=== PATIENT | male | born 1970 | race African-American/Black ===

== ENCOUNTER 2017-06-02 16:45 | Inpatient (IN) | payer BC, OTHER ==
[~2017-06-02] VITALS: Ht 167.6 cm; Wt 175.5 kg
[~2017-06-02 16:45] MED LIST: ALBU8.5H5 IH; ASPI81TA3 PO; BENA40TA41 PO; CEPH-443 PO; FURO-109 PO; HYDR-3498 PO; METO25TA4 PO; NIFE90TA21 PO; SULF1TAB31 PO
[2017-06-02 17:13] VITALS: Ht 167.6 cm; Wt 175.5 kg
[2017-06-02] MEDS ORDERED: ONDANSETRON 4 MG INJ IV STA (22:46)
[2017-06-02] MEDS ORDERED: morphine 4 MG/ML VIAL IV STA (22:46)
[2017-06-02] MEDS ORDERED: SOD CHLORIDE 0.9% 500 ML IV STA (22:46)
[2017-06-02 23:48] LABS: BASOPHILS % 0.3 % (0.0-2.0); EOSINOPHILS % 0.4 % (0.0-7.0); HEMATOCRIT 45.7 % (42.0-52.0); HEMOGLOBIN 13.8 g/dl (14.0-18.0); LYMPHOCYTES # 2.4 10^3/ul (0.8-2.9); LYMPHOCYTES % 22.9 % (15.0-51.0); MEAN CORPUSCULAR HEMOGLOBIN 24.2 pg (29.0-33.0); MEAN CORPUSCULAR HGB CONC 30.2 g/dl (32.0-37.0); MEAN PLATELET VOLUME 10.3 fl (7.4-10.4); MONOCYTES % 9.6 % (0.0-11.0); PLATELET COUNT 388 10^3/UL (140-415); RED BLOOD COUNT 5.71 10^6/ul (4.70-6.10); RED CELL DISTRIBUTION WIDTH 15.1 % (11.5-14.5); WHITE BLOOD COUNT 10.2 10^3/ul (4.8-10.8)
--- NOTE | 2017-06-02 23:49 | RADRPT ---
PROCEDURE: Portable chest x-ray. CLINICAL INDICATION: 46 years of age, Male. abdominal pain. TECHNIQUE: Portable AP view of the chest. COMPARISON: January 02, 2015 FINDINGS: Cardiomediastinal contours are normal. Lungs are clear. Negative for pleural effusion or pneumothorax. No acute bony abnormality. IMPRESSION: Negative for evidence of acute chest process. RPTAT: HCTS Physician Landon Date Time Electronically viewed and signed by Blaze Price Physician on 06/02/2017 23:49 CS/
[2017-06-03] VITALS (7 sets, daily range): BP systolic 109–142; BP diastolic 55–89; PULSE 106; RESP 18–20; TEMP 99.1
[2017-06-03 00:09] LABS: ALBUMIN/GLOBULIN RATIO 0.9; BILIRUBIN,INDIRECT 0.1 mg/dl (0-1.1); BILIRUBIN,TOTAL 0.1 mg/dl (0.2-1.3); CALCIUM 9.6 mg/dl (8.4-10.2); CREATININE 4.4 mg/dl (0.61-1.24); POTASSIUM 4.8 mmol/L (3.5-5.1); TOTAL PROTEIN 8.4 g/dl (6.1-8.1)
[2017-06-03 00:21] LABS: TROPONIN-I 0.012 ng/ml (0.00-0.12)
--- NOTE | 2017-06-03 00:47 | RADRPT ---
PROCEDURE: CT ABDOMEN AND PELVIS WITHOUT CONTRAST: CLINICAL INDICATION: 46 years of age, male , abdominal pain. COMPARISON: None available. TECHNIQUE: CT of the abdomen and pelvis was performed without intravenous contrast. Oral contrast wa s not administered prior to the examination. Coronal and sagittal reformatted images were obtained from the axial source images. Images were revi ewed on a high-resolution PACS workstation. Dose information: Based on a 32 cm phantom, the estimated radiation dose (CTDIvol mGy) for each seri es in this exam is 23.8. The estimated cumulative dose (DLP mGy-cm) is 1626. One or more of the following dose reduction techniques were used: - Automated exposure control. - Adjustment of the mA and/or kV according to patient size. - Use of iterative reconstruction technique. FINDINGS: In the absence of intravenous contrast, the study constitutes a limited assessment of the solid orga ns, bowel and vessels. LUNG BASES: Normal noncontrast appearance. ABDOMEN/PELVIS: Liver: Normal noncontrast appearance. Gallbladder: Normal noncontrast appearance. Bile ducts: No intrahepatic or extrahepatic biliary duct dilatation. Spleen: Normal noncontrast appearance. Pancreas: Normal noncontrast appearance. Adrenal glands: Normal noncontrast appearance. Kidneys and ureters: Normal noncontrast appearance. Negative for urinary calculi or hydronephrosis. Aorta and IVC: Normal noncontrast appearance. Lymph nodes: Normal noncontrast appearance. Gastrointestinal tract: Scattered colonic diverticula without diverticulitis. Bowel loops are decomp ressed. Appendix: Collapsed tubular structure in the right lower quadrant likely represents a non-inflamed a ppendix (3/128). Bladder: Normal noncontrast appearance. Pelvic Organs: Prostate gland and seminal vesicles are unremarkable. Peritoneal cavity: There is a trace of free intraperitoneal fluid that collects in the pelvis and i n bilateral paracolic gutters. Negative for free intraperitoneal air. Abdominal wall: Normal noncontrast appearance. BONES: Musculoskeletal: Multilevel degenerative changes in spine. No suspicious bone lesions. IMPRESSION: Small volume free intraperitoneal fluid. Negative for free intraperitoneal air. Scattered colonic diverticulosis without diverticulitis. RPTAT: HCTS Claudiay Sadro, Physician Date Time Electronically viewed and signed by Blaze Price, Physician on 06/03/2017 00:47 CS/
[2017-06-03] MEDS ORDERED: GLIP5TAB13 PO (01:10)
[2017-06-03] MEDS ORDERED: LOSA25TA5 PO (01:10)
[2017-06-03] MEDS ORDERED: LATA2.5D2 BOTH EYES (01:10)
[2017-06-03] MEDS ORDERED: SITA100T8 PO (01:12)
[2017-06-03] MEDS ORDERED: PIOG15TA21 PO (01:12)
[2017-06-03] MEDS ORDERED: ONDANSETRON 4 MG INJ IV STA (01:44)
--- NOTE | 2017-06-03 01:46 | ERA ---
ER Documentation Chief Complaint Date/Time DATE: 06/03/17 TIME: 01:45 Chief Complaint ap, dizziness, left foot pain HPI Some 38-year-old male comes in with abdominal pain and dizziness that started yesterday. Abdominal pain is colicky in nature mild to moderate intensity no exacerbating or alleviating factors. Normal bowel and bladder habits. No fevers no chills. Pain colicky in nature ROS All systems reviewed and are negative except as per history of present illness. Medications Home Meds Active Scripts Sulfamethoxazole-Trimethoprim (Bactrim DS Tablet) 800-160 Mg Tab, 1 TAB PO BID for 10 Days, TAB Prov:MELLY CARRANZA MD 03/16/15 Furosemide* (Lasix*) 40 Mg Tablet, 40 MG PO DAILY for leg edema, #60 TAB Prov:LEBRON WING MD 01/03/15 Reported Medications Pioglitazone Hcl* (Pioglitazone Hcl*) 15 Mg Tablet, 15 MG PO DAILY, TAB 06/03/17 Sitagliptin* (Januvia*) 100 Mg Tablet, 100 MG PO DAILY, #30 TAB 06/03/17 Latanoprost (Latanoprost) 2.5 Ml Drops, 1 DROP BOTH EYES QHS, #1 BOTTLE 06/03/17 Glipizide* (Glipizide*) 5 Mg Tablet, 5 MG PO BID, TAB 06/03/17 Losartan Potassium* (Losartan Potassium*) 25 Mg Tablet, 25 MG PO DAILY, TAB 06/03/17 Benazepril Hcl* (Benazepril Hcl*) 40 Mg Tablet, 40 MG PO DAILY, TAB 03/16/15 Hydrocodone Bit-Acetaminophen* ([place]*) 5-325 Mg Tab, 1 TAB PO Q6 Y for PAIN, TAB 03/16/15 Metoprolol Tartrate* (Lopressor*) 25 Mg Tablet, 25 MG PO BID, TAB 03/16/15 Albuterol Sulfate* (Albuterol Sulfate* HFA) 8.5 Gm Hfa.aer.ad, 2 PUFF IH Q4H for SHORTNESS OF BREATH, EA 12/16/14 Aspirin* (Aspirin* Chew) 81 Mg Tab.chew, 81 MG PO DAILY, TAB.CHEW 12/16/14 Discontinued Reported Medications Nifedipine* (Nifedipine ER*) 90 Mg Tablet.sa, 90 MG PO DAILY, TAB.SA 12/16/14 Discontinued Scripts Cephalexin* (Keflex*) 500 Mg Capsule, 500 MG PO QID for 10 Days, CAP Prov:MELLY CARRANZA MD 03/16/15 Cephalexin* (Keflex*) 500 Mg Capsule, 500 MG PO QID for 10 Days, CAP Prov:MELLY CARRANZA MD 03/16/15 Allergies Allergies: Coded Allergies: diphenhydramine (Unverified Allergy, Unknown, 06/03/17) PMhx/Soc History of Surgery: No Anesthesia Reaction: No Hx Neurological Disorder: No Hx Respiratory Disorders: Yes (asthma, PNA ) Hx Cardiac Disorders: Yes (HTN, CHF) Hx Psychiatric Problems: No Hx Miscellaneous Medical Probl: Yes (obesity) Hx Alcohol Use: No Hx Substance Use: No Hx Tobacco Use: No Smoking Status: Never smoker Physical Exam Vitals Vital Signs Date Time Temp Pulse Resp B/P Pulse Ox O2 Delivery O2 Flow Rate FiO2 06/03/17 00:38 98.1 77 20 148/77 99 Room Air 06/02/17 17:13 98.1 89 18 90/58 99 Physical Exam Const: [] Head: Atraumatic Eyes: Normal Conjunctiva ENT: Normal External Ears, Nose and Mouth. Neck: Full range of motion..~ No meningismus. Resp: Clear to auscultation bilaterally Cardio: Regular rate and rhythm, no murmurs Abd: Soft, non tender, non distended. Normal bowel sounds Skin: No petechiae or rashes Back: No midline or flank tenderness Ext: No cyanosis, or edema Neur: Awake and alert Psych: Normal Mood and Affect Result Diagram: 06/02/17 2311 06/02/17 2311 Results 24 hrs Laboratory Tests Test 06/02/17 23:11 White Blood Count 10.210^3/ul Red Blood Count 5.7110^6/ul Hemoglobin 13.8g/dl Hematocrit 45.7% Mean Corpuscular Volume 80.0fl Mean Corpuscular Hemoglobin 24.2pg Mean Corpuscular Hemoglobin Concent 30.2g/dl Red Cell Distribution Width 15.1% Platelet Count 89454^3/UL Mean Platelet Volume 10.3fl Neutrophils % 66.0% Lymphocytes % 22.9% Monocytes % 9.6% Eosinophils % 0.4% Basophils % 0.3% Nucleated Red Blood Cells % 0.0/100WBC Neutrophils # (Manual) 6.810^3/ul Lymphocytes # 2.410^3/ul Monocytes # 1.010^3/ul Eosinophils # 0.010^3/ul Basophils # 0.010^3/ul Nucleated Red Blood Cells # 0.010^3/ul Sodium Level 136mmol/L Potassium Level 4.8mmol/L Chloride Level 96mmol/L Carbon Dioxide Level 28mmol/L Anion Gap 17 Blood Urea Nitrogen 39mg/dl Creatinine 4.40mg/dl Glucose Level 124mg/dl Calcium Level 9.6mg/dl Total Bilirubin 0.1mg/dl Direct Bilirubin 0.00mg/dl Indirect Bilirubin 0.1mg/dl Aspartate Amino Transf (AST/SGOT) 17IU/L Alanine Aminotransferase (ALT/SGPT) 20IU/L Alkaline Phosphatase 90IU/L Troponin I 0.012ng/ml Total Protein 8.4g/dl Albumin 4.0g/dl Globulin 4.40g/dl Albumin/Globulin Ratio 0.90 Lipase 79U/L Current Medications Medications (Trade) Dose Ordered Sig/Aden Route PRN Reason Start Time Stop Time Status Last Admin Dose Admin Sodium Chloride (NS) 500 ml @ 500 mls/hr Q1H STAT IV 06/02/17 22:46 06/02/17 23:45 DC 06/02/17 23:19 Morphine Sulfate (morphine) 4 mg ONCE STAT IV 06/02/17 22:46 06/02/17 22:47 DC 06/02/17 23:17 Ondansetron HCl (Zofran Inj) 4 mg ONCE STAT IV 06/02/17 22:46 06/02/17 22:47 DC 06/02/17 23:17 Procedures/MDM Medical decision-makin-year-old male with abdominal pain. He does have evidence of renal failure along with free fluid in the abdomen pelvis with no evidence of perforation. Given these findings and is continued on and off pain , patient will be admitted for further evaluation and management to Dr. Cornell Sheppard Diagnosis: Primary Impression: Abdominal pain Qualified Code: R10.84 - Generalized abdominal pain Condition: Serious RASTA ALASHadley Jun 03, 2017 01:46
[2017-06-03] MEDS ORDERED: DEXTROSE 50% 50 ML SYRINGE IV PRN ×2 (04:45)
[2017-06-03] MEDS ORDERED: GLUCAGON 1 MG INJ IM PRN (04:45)
[2017-06-03] MEDS ORDERED: GLUCOSE GEL 15 GRAM TUBE BUCCAL PRN (04:45)
[2017-06-03] MEDS ORDERED: GLUCOSE GEL 15 GRAM TUBE PO PRN ×2 (04:45)
[2017-06-03] MEDS ORDERED: ACETAMINOPHEN 325 MG TAB PO PRN (05:00)
[2017-06-03] MEDS ORDERED: ONDANSETRON 4 MG INJ IV PRN (05:00)
[2017-06-03] MEDS ORDERED: ALBUTEROL 18 GM INHALER INH SCH (05:00)
[2017-06-03] MEDS ORDERED: morphine 2 MG INJ IV PRN (05:00)
[2017-06-03] MEDS: SOD CHLORIDE 0.9% 1,000 ML IV SCH ×2 (05:16→22:53)
[2017-06-03 05:53] LABS: BASOPHILS % 0.4 % (0.0-2.0); EOSINOPHILS % 0.4 % (0.0-7.0); HEMATOCRIT 40.3 % (42.0-52.0); HEMOGLOBIN 12.2 g/dl (14.0-18.0); LYMPHOCYTES # 1.9 10^3/ul (0.8-2.9); LYMPHOCYTES % 20.8 % (15.0-51.0); MEAN CORPUSCULAR HEMOGLOBIN 24.5 pg (29.0-33.0); MEAN CORPUSCULAR HGB CONC 30.3 g/dl (32.0-37.0); MEAN CORPUSCULAR VOLUME 80.9 fl (82.0-101.0); MEAN PLATELET VOLUME 10.5 fl (7.4-10.4); MONOCYTES % 11.1 % (0.0-11.0); NEUTROPHILS % 66.5 % (39.0-77.0); PLATELET COUNT 330 10^3/UL (140-415); RED BLOOD COUNT 4.98 10^6/ul (4.70-6.10); RED CELL DISTRIBUTION WIDTH 15.1 % (11.5-14.5)
[2017-06-03] MEDS ORDERED: ALBUTEROL 18 GM INHALER INH PRN (06:00)
[2017-06-03 06:28] LABS: CALCIUM 8.7 mg/dl (8.4-10.2); CREATININE 4.8 mg/dl (0.61-1.24); POTASSIUM 4.6 mmol/L (3.5-5.1)
[2017-06-03] MEDS ORDERED: glipiZIDE 5 MG TAB PO SCH (07:20)
[2017-06-03] MEDS: INSULIN ASPART [NOVOLOG] 3 ML PEN SC SCH ×4 (07:50→20:40)
[2017-06-03] MEDS: ASPIRIN 81 MG TAB PO SCH (08:48)
[2017-06-03] MEDS: PIOGLITAZONE 15 MG TAB PO SCH (08:48)
[2017-06-03] MEDS ORDERED: FAMOTIDINE 20 MG INJ IV SCH (09:00)
--- NOTE | 2017-06-03 09:09 | RADRPT ---
PROCEDURE: US Renal CLINICAL INDICATION: Elevated BUN and creatinine. TECHNIQUE: Multiple sonographic images of the kidneys and bladder were obtained. Evaluation of th e kidneys and bladder was performed as well with bernardo scale and color and Doppler evaluation using a curved array transducer. The images were reviewed on a high-resolution PACS workstation. COMPARISON: 12/19/2014 FINDINGS: The right kidney measures 10.2 x 4.2 x 5.0 cm. The left kidney measures 10.7 x 4.3 x 4.6 cm. There is normal echogenicity within the parenchyma of the kidneys bilaterally. There is no mass, calculus, or obstructive uropathy. No perinephric fluid collection is seen. Evaluation of the urinary bladder is unremarkable. IMPRESSION: 1. Unremarkable renal ultrasound. RPTAT: AACC Physician Edilberto Date Time Electronically viewed and signed by Physician Edilberto on 06/03/2017 09:09 /
[2017-06-03 09:51] LABS: ADD UMIC YES; UR AMORPHOUS CRYSTAL FEW /HPF (NONE SEEN); UR ASCORBIC ACID NEGATIVE (NEGATIVE); UR BACTERIA FEW /HPF (NONE SEEN); UR BILIRUBIN (Dip) NEGATIVE (NEGATIVE); UR BLOOD (Dip) 2+ mg/dL (NEGATIVE); UR CLARITY CLOUDY (CLEAR); UR COLOR AMBER (YELLOW); UR GLUCOSE (Dip) NEGATIVE (NEGATIVE); UR KETONES (Dip) NEGATIVE (NEGATIVE); UR LEUKOCYTE ESTERASE (Dip) TRACE Leu/ul (NEGATIVE); UR MUCUS FEW /HPF (NONE SEEN); UR NITRITE (Dip) NEGATIVE (NEGATIVE); UR RBC 42 /HPF (0-5); UR SPECIFIC GRAVITY (Dip) 1.025 (1.003-1.030); UR TOTAL PROTEIN (Dip) 2+ mg/dl (NEGATIVE); UR UROBILINOGEN (Dip) 1+ mg/dL (NEGATIVE)
[2017-06-03] MEDS: LATANOPROST 0.005% 2.5 ML OPH BOTH EYES SCH (20:40)
--- NOTE | 2017-06-03 22:25 | QN ---
Documentation Comment [id number] ERIC PAZ MD Jun 03, 2017 22:25
[2017-06-04] MEDS ORDERED: ACCU-CHEK XX SCH (02:00)
[2017-06-04] MEDS: ACCU-CHEK XX SCH (02:00)
[2017-06-04 02:20] VITALS: BP 128/72; RESP 20
[2017-06-04 05:49] LABS: BASOPHILS % 0.5 % (0.0-2.0); EOSINOPHILS # 0.1 10^3/ul (0.0-0.5); EOSINOPHILS % 1.8 % (0.0-7.0); HEMATOCRIT 36.7 % (42.0-52.0); HEMOGLOBIN 11.3 g/dl (14.0-18.0); LYMPHOCYTES # 1.8 10^3/ul (0.8-2.9); LYMPHOCYTES % 27.7 % (15.0-51.0); MEAN CORPUSCULAR HEMOGLOBIN 24.7 pg (29.0-33.0); MEAN CORPUSCULAR HGB CONC 30.8 g/dl (32.0-37.0); MEAN CORPUSCULAR VOLUME 80.1 fl (82.0-101.0); MEAN PLATELET VOLUME 10.8 fl (7.4-10.4); MONOCYTE # 0.6 10^3/ul (0.3-0.9); MONOCYTES % 9.1 % (0.0-11.0); NEUTROPHILS % 60.1 % (39.0-77.0); PLATELET COUNT 270 10^3/UL (140-415); RED BLOOD COUNT 4.58 10^6/ul (4.70-6.10); RED CELL DISTRIBUTION WIDTH 14.8 % (11.5-14.5); WHITE BLOOD COUNT 6.6 10^3/ul (4.8-10.8)
[2017-06-04 06:14] LABS: ANION GAP 15 (8-16); ASPARTATE AMINO TRANSFERASE 21 IU/L (15-46); BLOOD UREA NITROGEN 46 mg/dl (7-20); CALCIUM 8.5 mg/dl (8.4-10.2); CARBON DIOXIDE 24 mmol/L (21-31); CHLORIDE 99 mmol/L (97-110); GLUCOSE 87 mg/dl (70-220); PHOSPHORUS 5.6 mg/dl (2.5-4.9); POTASSIUM 4.5 mmol/L (3.5-5.1); SODIUM 133 mmol/L (135-144)
[2017-06-04 06:15] LABS: ALANINE AMINOTRANSFERASE 22 IU/L (13-69); ALBUMIN 3.5 g/dl (3.3-4.9); ALBUMIN/GLOBULIN RATIO 0.92; ALKALINE PHOSPHATASE 75 IU/L (42-121); BILIRUBIN,INDIRECT 0.1 mg/dl (0-1.1); BILIRUBIN,TOTAL 0.1 mg/dl (0.2-1.3); TOTAL PROTEIN 7.3 g/dl (6.1-8.1)
--- NOTE | 2017-06-04 06:24 | HP ---
DATE OF ADMISSION: 06/03/2017 CHIEF COMPLAINT/HISTORY OF PRESENT ILLNESS: Mic Fernandez is a young male who has a history of CKD, history of hypoxic respiratory distress, history of obesity, hypertension, dyslipidemia, asthma, history of borderline obese, worse in the past, history of CKD, history of hypertension. Patient in the ER was seen by Dr. Sukh Pagan and was complaining of abdominal pain, dizziness that started yesterday. Pain was colicky in nature and mild to moderate in severity and amount. Patient has no diarrhea, no fever, no chills. He also has complained of leg pain. Patient's blood pressure was 148/77 in the ER. Hemoglobin 10.2, hematocrit 41.7, platelet count of 388, with , and patient is being admitted for further management. PAST MEDICAL HISTORY: Positive for CKD, hypertension, diabetes mellitus, obesity. Denied sores and cellulitis. The patient has a history of diabetic retinopathy. ALLERGIES: DIPHENHYDRAMINE. SOCIAL HISTORY: Negative. FAMILY HISTORY: Hypertension and diabetes mellitus. MEDICATIONS: At home, patient is on: 1. Tylenol. 2. Albuterol. 3. Aspirin. 4. Benazepril. 5. Lasix. 6. Glipizide. 7. Eye drops. 8. Losartan. 9. Metoprolol. 10. Pioglitazone. 11. Januvia. 12. Trimethoprim/sulfamethoxazole. REVIEW OF SYSTEMS: HEENT: Unremarkable. RESPIRATORY: Unchanged. CARDIOVASCULAR: Unremarkable. ABDOMEN: No diarrhea. Abdominal pain is better. EXTREMITIES: Lower extremity pain. Pain is unremarkable. PHYSICAL EXAMINATION: GENERAL: This is an obese male, HEENT: Head is atraumatic, normocephalic. Pupils are equal, reactive to light. No pallor or conjunctivitis. NECK: Supple. RESPIRATORY: Clear. CARDIOVASCULAR: S1, S2 normal. ABDOMEN: Obese. Bowel sounds positive. . EXTREMITIES: No cyanosis, clubbing or edema. NEUROLOGIC: Patient is awake, alert, moving both upper and lower extremities. LABORATORY DATA: WBC 10.2, hematocrit 41.7, platelet count was 388. Patient has BUN 39, creatinine 4.4, potassium 4.8. Urinalysis: Leuk esterase trace, WBCs 14. RADIOLOGY: Patient had ultrasound of kidneys done, right kidney 10.2, left 10.7. Abdominopelvic CT scan shows patient had small volume negative for intraperitoneal air, scattered chronic diverticulosis without diverticulitis. Chest x-ray negative. IMPRESSION: 1. Acute kidney injury. 2. Dehydration. 3. Rule out drug-induced acute kidney injury. Rule out interstitial nephritis, underlying diabetic nephropathy, hypertensive nephrosclerosis. 4. Patient has obesity, dyslipidemia. PLAN: Obtain urine sodium and eosinophils. IV fluid. Hold diuretic and Bactrim. Sliding scale orders were done. Dictated By: Nixon Sarabia MD /miko/siddharth /Document#: [id number] MTDD
[2017-06-04 07:46] VITALS: BP 113/60; RESP 18
[2017-06-04] MEDS: INSULIN ASPART [NOVOLOG] 3 ML PEN SC SCH ×4 (07:50→20:54)
[2017-06-04] MEDS: PIOGLITAZONE 15 MG TAB PO SCH (08:42)
[2017-06-04] MEDS: FAMOTIDINE 20 MG TAB PO SCH (08:42)
[2017-06-04] MEDS: ASPIRIN 81 MG TAB PO SCH (08:42)
[2017-06-04 11:38] LABS: ADD UMIC YES; UR ASCORBIC ACID NEGATIVE (NEGATIVE); UR BACTERIA FEW /HPF (NONE SEEN); UR BILIRUBIN (Dip) NEGATIVE (NEGATIVE); UR BLOOD (Dip) 1+ mg/dL (NEGATIVE); UR CLARITY CLEAR (CLEAR); UR COLOR YELLOW (YELLOW); UR GLUCOSE (Dip) NEGATIVE (NEGATIVE); UR KETONES (Dip) NEGATIVE (NEGATIVE); UR LEUKOCYTE ESTERASE (Dip) NEGATIVE Leu/ul (NEGATIVE); UR MUCUS FEW /HPF (NONE SEEN); UR NITRITE (Dip) NEGATIVE (NEGATIVE); UR RBC 0 /HPF (0-5); UR SPECIFIC GRAVITY (Dip) 1.006 (1.003-1.030); UR TOTAL PROTEIN (Dip) NEGATIVE (NEGATIVE); UR UROBILINOGEN (Dip) NEGATIVE (NEGATIVE)
[2017-06-04 11:50] LABS: PROTEIN/CREAT RATIO 0.46 RATIO
[2017-06-04 15:25] VITALS: BP 127/58; RESP 20
--- NOTE | 2017-06-04 16:42 | PN ---
Date/Time of Note Date/Time of Note DATE: 06/04/17 TIME: 16:41 Assessment/Plan VTE Prophylaxis VTE Prophylaxis Intervention: other Lines/Catheters IV [facility] Type [facility]from [facility] Peripheral IV Urinary Cath still in place: No Assessment/Plan Chief Complaint/Hosp Course 1. Acute kidney injury. 2. Dehydration. 3. Rule out drug-induced acute kidney injury. Rule out interstitial nephritis, underlying diabetic nephropathy, hypertensive nephrosclerosis. 4. Patient has obesity, dyslipidemia. 5 underlying ckd plan ck labs Problems: Subjective 24 Hr Interval Summary Respiratory: No shortness of breath Cardiovascular: no complaints Gastrointestinal: no complaints Exam/Review of Systems Vital Signs Vitals Vital Signs Date Time Temp Pulse Resp B/P Pulse Ox O2 Delivery O2 Flow Rate FiO2 06/04/17 15:25 98.0 86 20 127/58 96 06/03/17 23:10 30 06/03/17 02:47 Room Air Intake and Output 06/03/17 06/03/17 06/04/17 15:00 23:00 07:00 Intake Total 2070 ml 1300 ml Output Total 100 ml 525 ml Balance 1970 ml 775 ml Exam Respiratory: clear to auscultation Cardiovascular: regular rate and rhythm Gastrointestinal: soft Musculoskeletal: nl extremities to inspection Extremities: edema (tr) Results Result Diagram: 06/04/17 0453 06/04/17 0453 Results 24 hrs Laboratory Tests Test 06/03/17 17:42 06/03/17 20:38 06/04/17 04:53 06/04/17 05:48 Bedside Glucose 77 96 White Blood Count 6.6 # Red Blood Count 4.58 L Hemoglobin 11.3 L Hematocrit 36.7 L Mean Corpuscular Volume 80.1 L Mean Corpuscular Hemoglobin 24.7 L Mean Corpuscular Hemoglobin Concent 30.8 L Red Cell Distribution Width 14.8 H Platelet Count 270 Mean Platelet Volume 10.8 H Neutrophils % 60.1 Lymphocytes % 27.7 Monocytes % 9.1 Eosinophils % 1.8 Basophils % 0.5 Nucleated Red Blood Cells % 0.0 Neutrophils # (Manual) 3.9 Lymphocytes # 1.8 Monocytes # 0.6 Eosinophils # 0.1 Basophils # 0.0 Nucleated Red Blood Cells # 0.0 Sodium Level 133 L Potassium Level 4.5 Chloride Level 99 Carbon Dioxide Level 24 Anion Gap 15 Blood Urea Nitrogen 46 H Creatinine 5.00 H Glucose Level 87 Calcium Level 8.5 Phosphorus Level 5.6 H Total Bilirubin 0.1 L Direct Bilirubin 0.00 Indirect Bilirubin 0.1 Aspartate Amino Transf (AST/SGOT) 21 Alanine Aminotransferase (ALT/SGPT) 22 Alkaline Phosphatase 75 Total Protein 7.3 # Albumin 3.5 Globulin 3.80 H Albumin/Globulin Ratio 0.92 Parathyroid Hormone (Intact) Urine Color YELLOW Urine Clarity CLEAR Urine pH 5.0 Urine Specific [place] 1.006 Urine Ketones NEGATIVE Urine Nitrite NEGATIVE Urine Bilirubin NEGATIVE Urine Urobilinogen NEGATIVE Urine Leukocyte Esterase NEGATIVE Urine Microscopic RBC 0 Urine Microscopic WBC 1 Urine Bacteria FEW A Urine Mucus FEW A Urine Eosinophils % 0.0 Urine Hemoglobin 1+ H Urine Random Creatinine 97.70 Urine Random Sodium 40 Urine Protein/Creatinine Ratio 0.46 Urine Glucose NEGATIVE Urine Total Protein 45.0 H Test 06/04/17 08:40 06/04/17 12:39 Bedside Glucose 90 95 Medications Medications Current Medications Aspirin (Aspirin) 81 mg DAILY PO Last administered on 06/04/17 08:42; Admin Dose 81 MG; Start 06/03/17 at 09:00 Acetaminophen/ Hydrocodone Bitart ([place] (5/325)) 1 tab Q6H PRN PO PAIN; Start 06/03/17 at 04:30 Latanoprost (Xalatan) 1 drop QHS BOTH EYES Last administered on 06/03/17 20:40 ; Admin Dose 1 DROP; Start 06/03/17 at 21:00 Pioglitazone HCl (Actos) 15 mg DAILY PO Last administered on 06/04/17 08:42; Admin Dose 15 MG; Start 06/03/17 at 09:00 Miscellaneous Information 1 ea NOTE XX ; Start 06/03/17 at 04:45 Glucose (Glutose) 15 gm Q15M PRN PO DECREASED GLUCOSE; Start 06/03/17 at 04:45 Glucose (Glutose) 22.5 gm Q15M PRN PO DECREASED GLUCOSE; Start 06/03/17 at 04:45 Dextrose (D50w Syringe) 25 ml Q15M PRN IV DECREASED GLUCOSE; Start 06/03/17 at 04:45 Dextrose (D50w Syringe) 50 ml Q15M PRN IV DECREASED GLUCOSE; Start 06/03/17 at 04:45 Glucagon (Glucagen) 1 mg Q15M PRN IM DECREASED GLUCOSE; Start 06/03/17 at 04:45 Glucose 15 gm 15 gm Q15M PRN BUCCAL DECREASED GLUCOSE; Start 06/03/17 at 04:45 Sodium Chloride (NS) 1,000 ml @ 50 mls/hr Q20H IV Last administered on 22:53; Admin Dose 50 MLS/HR; Start 06/03/17 at 05:00 Ondansetron HCl (Zofran Inj) 4 mg Q4H PRN IV NAUSEA AND/OR VOMITING; Start 06/03 at 05:00 Acetaminophen (Tylenol Tab) 650 mg Q6H PRN PO PAIN AND OR ELEVATED TEMP; Start 06/03/17 at 05:00 Morphine Sulfate (morphine) 2 mg Q4H PRN IV SEVERE PAIN LEVEL 7-10 Last administered on 06/03/17 05:16; Admin Dose 2 MG; Start 06/03/17 at 05:00 Diagnostic Test (Pha) (Accu-Chek) 1 ea 02 XX ; Start 06/04/17 at 02:00 Famotidine (Pepcid) 20 mg DAILY PO Last administered on 06/04/17 08:42; Admin Dose 20 MG; Start 06/04/17 at 09:00 ERIC PAZ MD Jun 04, 2017 16:42
[2017-06-04] MEDS: SOD CHLORIDE 0.9% 1,000 ML IV SCH (17:49)
[2017-06-04 20:20] VITALS: BP 148/72; RESP 18
[2017-06-04] MEDS: LATANOPROST 0.005% 2.5 ML OPH BOTH EYES SCH (20:54)
[2017-06-05] MEDS: ACCU-CHEK XX SCH (00:18)
[2017-06-05 02:31] VITALS: BP 140/70; RESP 20
[2017-06-05 06:09] LABS: ALBUMIN 3.5 g/dl (3.3-4.9); ALBUMIN/GLOBULIN RATIO 0.92; BILIRUBIN,INDIRECT 0.1 mg/dl (0-1.1); BILIRUBIN,TOTAL 0.1 mg/dl (0.2-1.3); CALCIUM 9.1 mg/dl (8.4-10.2); CREATININE 2.28 mg/dl (0.61-1.24); POTASSIUM 5.2 mmol/L (3.5-5.1); TOTAL PROTEIN 7.3 g/dl (6.1-8.1)
[2017-06-05] MEDS ORDERED: NA POLYST SULFON 15 GM/60 ML BTL PO ONE (06:30)
[2017-06-05] MEDS: INSULIN ASPART [NOVOLOG] 3 ML PEN SC SCH ×4 (07:50→20:49)
[2017-06-05 08:12] VITALS: BP 160/90; RESP 18
[2017-06-05] MEDS: PIOGLITAZONE 15 MG TAB PO SCH (08:43)
[2017-06-05] MEDS: FAMOTIDINE 20 MG TAB PO SCH (08:44)
[2017-06-05] MEDS: ASPIRIN 81 MG TAB PO SCH (08:44)
[2017-06-05] MEDS: SOD CHLORIDE 0.9% 1,000 ML IV SCH (12:31)
--- NOTE | 2017-06-05 12:38 | PN ---
Date/Time of Note Date/Time of Note DATE: 06/05/17 TIME: 12:36 Assessment/Plan VTE Prophylaxis VTE Prophylaxis Intervention: ambulation Lines/Catheters IV [facility] Type (from [facility] Peripheral IV Urinary Cath still in place: No Assessment/Plan Chief Complaint/Hosp Course 1. Acute kidney injury. 2. Dehydration. 3. Rule out drug-induced acute kidney injury. Rule out interstitial nephritis, underlying diabetic nephropathy, hypertensive nephrosclerosis. 4. Morbid obesity, 5. Dyslipidemia. 5 CKD mild Problems: Assessment/Plan 1. Keep IV fluids Subjective 24 Hr Interval Summary Constitutional: no complaints Gastrointestinal: pain (stomach) Exam/Review of Systems Vital Signs Vitals Vital Signs Date Time Temp Pulse Resp B/P Pulse Ox O2 Delivery O2 Flow Rate FiO2 06/05/17 08:12 98.1 77 18 160/90 99 06/03/17 23:10 30 06/03/17 02:47 Room Air Intake and Output 06/04/17 06/04/17 06/05/17 15:00 23:00 07:00 Intake Total 2420 ml 1200 ml Output Total 2500 ml 2050 ml Balance -80 ml -850 ml Exam Constitutional: alert, oriented Gastrointestinal: soft Extremities: edema Results Result Diagram: 06/04/17 0453 06/05/17 0446 Results 24 hrs Laboratory Tests Test 06/04/17 12:39 06/04/17 17:47 06/04/17 20:53 06/05/17 04:46 Bedside Glucose 95 108 110 Sodium Level 138 Potassium Level 5.2 H Chloride Level 104 Carbon Dioxide Level 27 Anion Gap 12 Blood Urea Nitrogen 35 #H Creatinine 2.28 #H Glucose Level 95 Calcium Level 9.1 Total Bilirubin 0.1 L Direct Bilirubin 0.00 Indirect Bilirubin 0.1 Aspartate Amino Transf (AST/SGOT) 30 Alanine Aminotransferase (ALT/SGPT) 30 Alkaline Phosphatase 74 Total Protein 7.3 Albumin 3.5 Globulin 3.80 H Albumin/Globulin Ratio 0.92 Test 06/05/17 08:41 Bedside Glucose 105 Medications Medications Current Medications Aspirin (Aspirin) 81 mg DAILY PO Last administered on 06/05/17t 08:44; Admin Dose 81 MG; Start 06/03/17 at 09:00 Acetaminophen/ Hydrocodone Bitart ([place] (5/325)) 1 tab Q6H PRN PO PAIN; Start 06/03/17 at 04:30 Latanoprost (Xalatan) 1 drop QHS BOTH EYES Last administered on 06/04/17 20:54 ; Admin Dose 1 DROP; Start 06/03/17 at 21:00 Pioglitazone HCl (Actos) 15 mg DAILY PO Last administered on 06/05/17 08:43; Admin Dose 15 MG; Start 06/03/17 at 09:00 Miscellaneous Information 1 ea NOTE XX ; Start 06/03/17 at 04:45 Glucose (Glutose) 15 gm Q15M PRN PO DECREASED GLUCOSE; Start 06/03/17 at 04:45 Glucose (Glutose) 22.5 gm Q15M PRN PO DECREASED GLUCOSE; Start 06/03/17 at 04:45 Dextrose (D50w Syringe) 25 ml Q15M PRN IV DECREASED GLUCOSE; Start 06/03/17 at 04:45 Dextrose (D50w Syringe) 50 ml Q15M PRN IV DECREASED GLUCOSE; Start 06/03/17 at 04:45 Glucagon (Glucagen) 1 mg Q15M PRN IM DECREASED GLUCOSE; Start 06/03/17 at 04:45 Glucose 15 gm 15 gm Q15M PRN BUCCAL DECREASED GLUCOSE; Start 06/03/17 at 04:45 Sodium Chloride (NS) 1,000 ml @ 50 mls/hr Q20H IV Last administered on 12:31; Admin Dose 50 MLS/HR; Start 06/03/17 at 05:00 Ondansetron HCl (Zofran Inj) 4 mg Q4H PRN IV NAUSEA AND/OR VOMITING; Start 06/03 at 05:00 Acetaminophen (Tylenol Tab) 650 mg Q6H PRN PO PAIN AND OR ELEVATED TEMP; Start 06/03/17 at 05:00 Morphine Sulfate (morphine) 2 mg Q4H PRN IV SEVERE PAIN LEVEL 7-10 Last administered on 06/03/17 05:16; Admin Dose 2 MG; Start 06/03/17 at 05:00 Diagnostic Test (Pha) (Accu-Chek) 1 ea 02 XX ; Start 06/04/17 at 02:00 Famotidine (Pepcid) 20 mg DAILY PO Last administered on 06/05/17 08:44; Admin Dose 20 MG; Start 06/04/17 at 09:00 DRU NICHOLAS Jun 05, 2017 12:38
[2017-06-05] MEDS ORDERED: IBUPROFEN 400 MG TAB PO PRN (13:00)
[2017-06-05 14:00] VITALS: BP 165/79; RESP 16
[2017-06-05] MEDS ORDERED: CEFTRIAXONE 1 GM/50 ML (PMX) 50 ML IVPB ONE (15:30)
[2017-06-05 17:05] VITALS: BP 137/81; PULSE 81
[2017-06-05 20:17] VITALS: BP 141/77; RESP 20
[2017-06-05] MEDS: LATANOPROST 0.005% 2.5 ML OPH BOTH EYES SCH (20:49)
[2017-06-06] MEDS: ACCU-CHEK XX SCH (01:08)
[2017-06-06 05:26] LABS: BASOPHILS % 0.6 % (0.0-2.0); EOSINOPHILS # 0.2 10^3/ul (0.0-0.5); EOSINOPHILS % 2.8 % (0.0-7.0); HEMOGLOBIN 11.8 g/dl (14.0-18.0); LYMPHOCYTES # 1.5 10^3/ul (0.8-2.9); LYMPHOCYTES % 28.3 % (15.0-51.0); MEAN CORPUSCULAR HEMOGLOBIN 25.3 pg (29.0-33.0); MEAN CORPUSCULAR HGB CONC 31.9 g/dl (32.0-37.0); MEAN CORPUSCULAR VOLUME 79.4 fl (82.0-101.0); MONOCYTE # 0.5 10^3/ul (0.3-0.9); MONOCYTES % 10.1 % (0.0-11.0); NEUTROPHILS % 57.8 % (39.0-77.0); PLATELET COUNT 278 10^3/UL (140-415); RED BLOOD COUNT 4.66 10^6/ul (4.70-6.10); RED CELL DISTRIBUTION WIDTH 14.4 % (11.5-14.5); WHITE BLOOD COUNT 5.4 10^3/ul (4.8-10.8)
[2017-06-06 05:48] LABS: CREATININE 1.65 mg/dl (0.61-1.24); POTASSIUM 4.8 mmol/L (3.5-5.1)
[2017-06-06 07:41] VITALS: BP 183/93; RESP 16
[2017-06-06] MEDS: INSULIN ASPART [NOVOLOG] 3 ML PEN SC SCH ×4 (07:50→21:00)
[2017-06-06] MEDS: FAMOTIDINE 20 MG TAB PO SCH (08:33)
[2017-06-06] MEDS: PIOGLITAZONE 15 MG TAB PO SCH (08:33)
[2017-06-06] MEDS: ASPIRIN 81 MG TAB PO SCH (08:33)
[2017-06-06] MEDS: SOD CHLORIDE 0.9% 1,000 ML IV SCH ×2 (09:04→13:00)
[2017-06-06 09:20] VITALS: BP 160/88; PULSE 85
[2017-06-06 13:50] VITALS: BP 171/77; RESP 16
[2017-06-06 14:00] VITALS: BP 166/89
--- NOTE | 2017-06-06 16:04 | PN ---
DRU ZALDIVAR 06/06/17 1604: Date/Time of Note Date/Time of Note DATE: 06/06/17 TIME: 16:02 Assessment/Plan VTE Prophylaxis VTE Prophylaxis Intervention: ambulation Lines/Catheters IV Catheter Type (from [facility]): Peripheral IV Urinary Cath still in place: No Assessment/Plan Chief Complaint/Hosp Course 1. Acute kidney injury. 2. Dehydration, resolved. 3. Rule out drug-induced acute kidney injury. Rule out interstitial nephritis, underlying diabetic nephropathy, hypertensive nephrosclerosis. 4. Morbid obesity, 5. Dyslipidemia. 5 CKD mild Problems: Assessment/Plan 1. continue IV fluids 2. Ambulation Subjective 24 Hr Interval Summary Constitutional: improved, no complaints Exam/Review of Systems Vital Signs Vitals Vital Signs Date Time Temp Pulse Resp B/P Pulse Ox O2 Delivery O2 Flow Rate FiO2 06/06/17 14:00 166/89 06/06/17 13:50 98.1 71 16 98 06/03/17 23:10 30 06/03/17 02:47 Room Air Intake and Output 06/05/17 06/05/17 06/06/17 15:00 23:00 07:00 Intake Total 350 ml 2300 ml 1950 ml Output Total 1700 ml Balance 350 ml 2300 ml 250 ml Exam Constitutional: alert, oriented Cardiovascular: nl pulses, regular rate and rhythm Gastrointestinal: soft Musculoskeletal: swelling (lower extremities) Results Result Diagram: 06/06/17 0438 06/06/17 0438 Results 24 hrs Laboratory Tests Test 06/05/17 17:27 06/05/17 20:46 06/06/17 04:38 06/06/17 08:30 Bedside Glucose 105 118 92 White Blood Count 5.4 Red Blood Count 4.66 L Hemoglobin 11.8 L Hematocrit 37.0 L Mean Corpuscular Volume 79.4 L Mean Corpuscular Hemoglobin 25.3 L Mean Corpuscular Hemoglobin Concent 31.9 L Red Cell Distribution Width 14.4 Platelet Count 278 Mean Platelet Volume 10.0 Neutrophils % 57.8 Lymphocytes % 28.3 Monocytes % 10.1 Eosinophils % 2.8 Basophils % 0.6 Nucleated Red Blood Cells % 0.0 Neutrophils # (Manual) 3.1 Lymphocytes # 1.5 Monocytes # 0.5 Eosinophils # 0.2 Basophils # 0.0 Nucleated Red Blood Cells # 0.0 Sodium Level 139 Potassium Level 4.8 Chloride Level 102 Carbon Dioxide Level 31 Anion Gap 11 Blood Urea Nitrogen 26 H Creatinine 1.65 H Glucose Level 102 Uric Acid 9.4 H Calcium Level 9.0 Test 06/06/17 12:33 Bedside Glucose 116 Medications Medications Current Medications Aspirin (Aspirin) 81 mg DAILY PO Last administered on 06/06/17 08:33; Admin Dose 81 MG; Start 06/03/17 at 09:00 Acetaminophen/ Hydrocodone Bitart ([place] (5/325)) 1 tab Q6H PRN PO PAIN; Start 06/03/17 at 04:30 Latanoprost (Xalatan) 1 drop QHS BOTH EYES Last administered on 06/05/17 20:49 ; Admin Dose 1 DROP; Start 06/03/17 at 21:00 Pioglitazone HCl (Actos) 15 mg DAILY PO Last administered on 06/06/17 08:33; Admin Dose 15 MG; Start 06/03/17 at 09:00 Miscellaneous Information 1 ea NOTE XX ; Start 06/03/17 at 04:45 Glucose (Glutose) 15 gm Q15M PRN PO DECREASED GLUCOSE; Start 06/03/17 at 04:45 Glucose (Glutose) 22.5 gm Q15M PRN PO DECREASED GLUCOSE; Start 06/03/17 at 04:45 Dextrose (D50w Syringe) 25 ml Q15M PRN IV DECREASED GLUCOSE; Start 06/03/17 at 04:45 Dextrose (D50w Syringe) 50 ml Q15M PRN IV DECREASED GLUCOSE; Start 06/03/17 at 04:45 Glucagon (Glucagen) 1 mg Q15M PRN IM DECREASED GLUCOSE; Start 06/03/17 at 04:45 Glucose 15 gm 15 gm Q15M PRN BUCCAL DECREASED GLUCOSE; Start 06/03/17 at 04:45 Sodium Chloride (NS) 1,000 ml @ 50 mls/hr Q20H IV Last administered on 12:31; Admin Dose 50 MLS/HR; Start 06/03/17 at 05:00 Ondansetron HCl (Zofran Inj) 4 mg Q4H PRN IV NAUSEA AND/OR VOMITING; Start 06/03 at 05:00 Acetaminophen (Tylenol Tab) 650 mg Q6H PRN PO PAIN AND OR ELEVATED TEMP Last administered on 06/06/17 07:34; Admin Dose 650 MG; Start 06/03/17 at 05:00 Morphine Sulfate (morphine) 2 mg Q4H PRN IV SEVERE PAIN LEVEL 7-10 Last administered on 06/03/17 05:16; Admin Dose 2 MG; Start 06/03/17 at 05:00 Diagnostic Test (Pha) (Accu-Chek) 1 ea 02 XX ; Start 06/04/17 at 02:00 Famotidine (Pepcid) 20 mg DAILY PO Last administered on 06/06/17 08:33; Admin Dose 20 MG; Start 06/04/17 at 09:00 Ibuprofen (Motrin) 400 mg Q6H PRN PO PAIN OR TEMP ABOVE 38C; Start 06/05/17 at 13:00 Clonidine (Catapres) 0.1 mg TID PO Last administered on 06/06/17 14:10; Admin Dose 0.1 MG; Start 06/05/17 at 17:00 JACKY EVANS MD 06/06/17 1625: Assessment/Plan Assessment/Plan Chief Complaint/Hosp Course d/c Motrin due to je Problems: Exam/Review of Systems Results Result Diagram: 06/06/17 0438 06/06/17 0438 DRU NICHOLAS Jun 06, 2017 16:04 JACKY EVANS MD Jun 06, 2017 16:25
[2017-06-06 19:28] VITALS: BP 150/80; PULSE 68; RESP 18
[2017-06-06] MEDS: LATANOPROST 0.005% 2.5 ML OPH BOTH EYES SCH (21:00)
[2017-06-07] MEDS: ACCU-CHEK XX SCH (01:43)
[2017-06-07] MEDS: SOD CHLORIDE 0.9% 1,000 ML IV SCH (05:15)
[2017-06-07 05:26] LABS: BASOPHILS % 0.6 % (0.0-2.0); EOSINOPHILS # 0.2 10^3/ul (0.0-0.5); HEMATOCRIT 37.3 % (42.0-52.0); HEMOGLOBIN 11.6 g/dl (14.0-18.0); LYMPHOCYTES # 1.9 10^3/ul (0.8-2.9); MEAN CORPUSCULAR HEMOGLOBIN 24.8 pg (29.0-33.0); MEAN CORPUSCULAR HGB CONC 31.1 g/dl (32.0-37.0); MEAN CORPUSCULAR VOLUME 79.9 fl (82.0-101.0); MEAN PLATELET VOLUME 9.9 fl (7.4-10.4); MONOCYTE # 0.6 10^3/ul (0.3-0.9); MONOCYTES % 10.6 % (0.0-11.0); NEUTROPHILS % 50.2 % (39.0-77.0); PLATELET COUNT 265 10^3/UL (140-415); RED BLOOD COUNT 4.67 10^6/ul (4.70-6.10); RED CELL DISTRIBUTION WIDTH 14.6 % (11.5-14.5); WHITE BLOOD COUNT 5.3 10^3/ul (4.8-10.8)
[2017-06-07 06:04] LABS: CREATININE 1.51 mg/dl (0.61-1.24); POTASSIUM 4.6 mmol/L (3.5-5.1); URIC ACID 8.6 mg/dl (3.1-7.9)
[2017-06-07] MEDS: INSULIN ASPART [NOVOLOG] 3 ML PEN SC SCH ×3 (07:50→17:55)
[2017-06-07 08:06] VITALS: BP 168/89; RESP 18
[2017-06-07] MEDS: PIOGLITAZONE 15 MG TAB PO SCH (08:42)
[2017-06-07] MEDS: FAMOTIDINE 20 MG TAB PO SCH (08:43)
[2017-06-07] MEDS: ASPIRIN 81 MG TAB PO SCH (08:44)
[2017-06-07] MEDS: HYDROCODONE/APAP (5/325) TAB PO PRN ×2 (09:20→17:57)
[2017-06-07 14:29] VITALS: BP 148/87; RESP 20
--- NOTE | 2017-06-07 16:20 | PDOCDIS ---
Discharge Instructions CONDITION Patient Condition: Good HOME CARE INSTRUCTIONS: Diet Instructions: Low Fat /CholesterolSpecial Diet: 1800 ADA 2gna ACTIVITY: Activity Restrictions: Slowly Increase Activity FOLLOW UP/APPOINTMENTS Follow-up Plan f/u PMD in 2-3 days for BP check and f/u labs JACKY EVANS MD Jun 07, 2017 16:20
[2017-06-07] MEDS ORDERED: CLON0.1T14 PO (16:23)
== END 2017-06-07 19:28 | disposition home or self-care (01) | DRG 683 ==
LOC: E/R 16:45 → MS1 06-03 01:35 → OBSVTOIN 06-05 17:20
PROVIDERS: ADMIT Internal Medicine Nephrology; ATTEND Internal Medicine Nephrology
DX: N17.9 Acute kidney failure, unspecified (principal); Z68.44 Body mass index [BMI] 60.0-69.9, adult; E11.22 Type 2 diabetes mellitus with diabetic chronic kidney disease; I12.9 Hypertensive chronic kidney disease with stage 1 through stage 4 chronic kidney disease, or unspecified chronic kidney disease; R10.84 Generalized abdominal pain; E66.01 Morbid (severe) obesity due to excess calories; R42 Dizziness and giddiness; N18.9 Chronic kidney disease, unspecified; E11.9 Type 2 diabetes mellitus without complications; E86.0 Dehydration; E78.5 Hyperlipidemia, unspecified
CPT/HCPCS: 36415; 71010; 74176; 76775; 80048; 80053; 81001; 81003; 82570; 82962; 83690; 84100; 84155; 84300; 84484; 84560; 85025; 87086; 89190; 94660; 96374; 96375; 96376; A4310; G0378; J0696; J1815; J2270; J2405; J7030; J7040